=== PATIENT | female | born 1965 | race Caucasian/White ===

== ENCOUNTER 2016-04-29 16:20 | Emergency (ER) | payer OTHER ==
[~2016-04-29] VITALS: Ht 167.6 cm; Wt 77.6 kg
[2016-04-29 16:38] VITALS: BP 139/61
[2016-04-29] MEDS ORDERED: VITAMIN D50000 I3 PO (16:39)
[2016-04-29] MEDS ORDERED: LITHIUM CARBON300 MG PO (16:39)
[2016-04-29] MEDS ORDERED: ZEBETA10 MG PO (16:40)
[2016-04-29] MEDS ORDERED: ACETAMINOPHEN-H1 TA2 PO (16:40)
[2016-04-29] MEDS ORDERED: METHIMAZOLE10 MG PO (16:40)
[2016-04-29] MEDS ORDERED: BUTORPHANOL10 MG/M1 NAS (16:41)
[2016-04-29] MEDS ORDERED: Motrin,Rufen800 MG PO (18:06)
[2016-04-29] MEDS ORDERED: CYCLOBENZAPRINE10 MG PO (18:06)
== END 2016-04-29 18:25 | disposition home or self-care (01) ==
LOC: ED 16:20
DX: S80.11XA Contusion of right lower leg, initial encounter (principal); S30.0XXA Contusion of lower back and pelvis, initial encounter; S70.01XA Contusion of right hip, initial encounter; F17.200 Nicotine dependence, unspecified, uncomplicated; Z79.899 Other long term (current) drug therapy; W01.0XXA Fall on same level from slipping, tripping and stumbling without subsequent striking against object, initial encounter; Y93.9 Activity, unspecified; Y92.9 Unspecified place or not applicable; Y99.9 Unspecified external cause status

== ENCOUNTER 2016-08-21 16:53 | Emergency (ER) | payer OTHER ==
[~2016-08-21] VITALS: Ht 170.1 cm; Wt 74.4 kg
[~2016-08-21 16:53] MED LIST: ACETAMINOPHEN-H1 TA2 PO; BUTORPHANOL10 MG/M1 NAS; CYCLOBENZAPRINE10 MG PO; LITHIUM CARBON300 MG PO; METHIMAZOLE10 MG PO; Motrin,Rufen800 MG PO; VITAMIN D50000 I3 PO; ZEBETA10 MG PO
[2016-08-21 17:08] VITALS: BP 154/72
[2016-08-21] MEDS ORDERED: SEROQUEL100 MG PO (17:10)
[2016-08-21] MEDS ORDERED: ATIVAN2 M1 PO (17:10)
== END 2016-08-21 19:42 | disposition home or self-care (01) ==
LOC: ED 16:53
DX: R60.0 Localized edema (principal); F17.200 Nicotine dependence, unspecified, uncomplicated; Z79.899 Other long term (current) drug therapy

== ENCOUNTER 2016-10-15 10:33 | Inpatient (IN) | payer OTHER ==
[~2016-10-15] VITALS: Ht 170.2 cm; Wt 81.7 kg
--- NOTE | ~2016-10-15 | PR ---
[place], [place] PROGRESS NOTE NAME: JENNY QIUNN UNIT #: [id number] ROOM: 511 DOCTOR: MITCHELL HOLDEN MD BIRTHDATE: [birth year] DOS: 10/18/2016 REASON OF VISIT: CHF. HISTORY OF PRESENT ILLNESS: The patient is feeling better, less short of breath. Edema is much improved. Denies any chest pains, palpitations or orthopnea. She had a thoracentesis yesterday. No fever or chills, no cough. REVIEW OF SYSTEMS: Review of the 8 systems negative except as mentioned above. RHYTHM STRIPS: The patient was in sinus rhythm. PHYSICAL EXAMINATION: VITAL SIGNS: Initial vital signs reviewed. Blood pressure 110/70, pulse 70, respiratory rate 16. GENERAL: Alert, comfortable, in no acute distress. HEAD AND NECK: Pupils are round and equal. No jaundice. NECK: Supple, no distended neck veins, no carotid bruit. Thyroid not palpable. CHEST: Symmetrical, nontender. LUNGS: Few scattered rhonchi, diminished at bases. HEART: Regular rhythm, no S3. Grade 1/6 systolic murmur. ABDOMEN: Benign, nontender. Bowel sounds normal. The patient had a soft tissue swelling on the left side of the abdomen. EXTREMITIES: Showed 1+ bilateral pitting edema. Distal pulses palpable. SKIN: Warm and dry. No cyanosis, no clubbing. NEUROLOGIC: The patient is alert, oriented. No focal neurologic deficit. MEDICATIONS AND LABORATORY: Reviewed as available. IMPRESSION: 1. Congestive heart failure due to overload, diastolic heart failure, improving. 2. Thyrotoxicosis, currently heart rates better. 3. Pleural effusion, status post thoracocentesis. 4. Morbid obesity. RECOMMENDATIONS: 1. Change her Lasix to p.o. 2. Continue her current medications. 3. Rest of the management for thyrotoxicosis per PCP. [place], [place] PROGRESS NOTE NAME: JENNY QUINN UNIT #: [id number] ROOM: 511 DOCTOR: MITCHELL HOLDEN MD BIRTHDATE: [birth year] MITCHELL HOLDEN MD CM:BOBY [id number] MITCHELL HOLDEN MD 10/18/162150 interface
--- NOTE | ~2016-10-15 | PR ---
[place], [place] PROGRESS NOTE NAME: JENNY QUINN [facility] #: [id number] UNIT #: [id number] ROOM: 511 DOCTOR: MEHRAN SIERRA MD,MARY JO BIRTHDATE: [birth year] DOS: 10/17/2016 SUBJECTIVE: The patient has been noted without any new acute complaints at this time. Still noted symptoms of shortness of breath, which has not been resolving. She denies symptoms of chest pain or abdominal pain. The cough has been noted by patient with gradual reduction. OBJECTIVE: VITAL SIGNS: For the patient which has been recorded showed the temperature of the patient noted as normal. The respiratory rate of the patient recorded as 20. Heart rate of 93, blood pressure 127/73. HEENT: Exam showed no new change. NECK: Supple. CARDIOVASCULAR: S1, S2 audible. LUNGS: Noted absent breath sounds in the right lower lung. ABDOMEN: Soft, nontender, bowel sounds present. EXTREMITIES: Still shows mild edema. LABORATORY DATA: Ultrasound of both lower extremities does not show any acute deep venous thrombosis that was done this morning. CMP of the patient showed BUN 11, creatinine was normal. The CBC of this morning for the patient's hemoglobin of 9.0, hematocrit 28.7, platelet count was normal. The echocardiogram of the patient that was completed yesterday was reported by the radiologist, Dr. Tejeda as findings of hyperdynamic left ventricular function noted with ejection fraction of 70-75% with normal diastolic dysfunction. The CT scan of the chest of patient that was ordered yesterday was reviewed as well shows moderate to large left pleural fluid noted with area of atelectasis. Diffuse subcutaneous edema was described. IMPRESSION: 1. The patient who has been currently noted at this time with the congestive heart failure, hyperdynamic left ventricle ejection fraction with significant edema to the patient's part of the body including the right pleural fluid. 2. Rule out pneumonia for this patient as well. 3. Acute tracheobronchitis was noted as well with history of nicotine dependence. PLAN OF TREATMENT: Thoracentesis for the patient was planned to be done at the bedside with ultrasound assessment that showed large pleural fluid on the right side as well. The ultrasound of the chest was personally performed. Continue to diuretic therapy, continue antibiotic until the pneumonia is excluded, ____ most likely would be considered less likely current assessment. [place], [place] PROGRESS NOTE NAME: JENNY QUINN Demi UNIT #: [id number] ROOM: 511 DOCTOR: MEHRAN SIERRA MD,MARY JO BIRTHDATE: [birth year] MARY JO LAURENT MD CM:PNTRANS [id number] MARY JO SIERRA MD 10/18/16 0613 interface
--- NOTE | ~2016-10-15 | CON ---
[place], [place] REPORT OF CONSULTATION NAME: JENNY QUINN [facility] #: [id number] UNIT #: [id number] ROOM: 511 DOCTOR: DEVONTE CHO MD BIRTHDATE: [birth year] DOS: 10/15/2016 REASON FOR CONSULTATION: Dyspnea, pleural effusion, heart failure. HISTORY OF PRESENT ILLNESS: The patient is a 51-year-old woman who states that she was diagnosed as having Graves' disease about one year ago. She also carries diagnoses of hypertension, bipolar disorder and schizoaffective disorder. She was seen one time by an assembler truck trailer who treated her with methimazole. She stated that the medication made her ill and she never went back to see her again. She comes in now because of worsening dyspnea. She was seen by her PCP who noticed that she was becoming more and more dyspneic with increased orthopnea, lower extremity edema and abdominal edema. She also measured a 20-pound weight gain. The patient does occasionally have some chest discomfort. She does notice palpitations frequently. She denies lightheadedness or syncope, but has had significant ankle edema. PAST MEDICAL HISTORY: Includes: 1. Hypertension. 2. Bipolar disorder. 3. Graves' disease. The patient did receive methimazole, but stopped it because it made her sick. She has not had radioactive iodine or thyroidectomy surgery. 4. Migraine headaches. 5. Schizoaffective disorder. 6. History of back surgery, hysterectomy, neck surgery and oophorectomy. MEDICATIONS: On admission, butorphanol tartrate 10 mg 1 spray in the nostrils q. 8 hours as needed for migraine, bisoprolol 10 mg p.o. b.i.d., diltiazem 120 mg daily (patient states she is no longer taking this), vitamin D2 50,000 units weekly, acetaminophen with hydrocodone t.i.d. p.r.n. pain, lorazepam 2 mg t.i.d., omeprazole 20 mg daily and Seroquel 100 mg at bedtime. ALLERGIES: SHE LISTS ALLERGIES TO KETOROLAC, MOXIFLOXACIN, SULFAMETHOXAZOLE AND TRIMETHOPRIM. FAMILY HISTORY: The patient's father is alive and healthy. Her mother had a heart attack at age 45 and also has COPD. REVIEW OF SYSTEMS: The patient denies diplopia or loss of vision. She does have dry eyes. She denies fevers, chills or sweats. She has had over a 100-pound weight gain in the last year from her Graves' disease. She denies nausea or vomiting. She denies chills, but does have fevers and sweats. She denies focal weakness or stroke. She denies hemoptysis or hematemesis. She denies any blood in her stools or urine or any bleeding from any other site. She has noticed swelling in her abdomen and legs lately. She denies any skin rashes. She denies polydipsia or polyuria, but she has had heat intolerance. The remainder of the review of systems is negative except as noted above. [place], [place] REPORT OF CONSULTATION NAME: JENNY QUINN UNIT #: [id number] ROOM: [facility] DOCTOR: DEVONTE CHO MD BIRTHDATE: [birth year] SOCIAL HISTORY: The patient drinks alcohol rarely. She smokes about a half pack of cigarettes a day. PHYSICAL EXAMINATION: GENERAL: The patient is an overweight white female who is awake, alert and oriented. VITAL SIGNS: Pulse is 74 and regular, blood pressure is 142/56. She is afebrile. She weighs 87.1 kg and has a body mass index of 30.1. HEENT: Normocephalic, atraumatic. Extraocular muscles are intact. She does have marked proptosis. Pupils are equal, round and reactive to light. The sclerae are clear. Her oral mucosa is moist. Tongue is midline. NECK: Supple. She does have jugular distention with hepatojugular reflux. Carotids are full. Her thyroid is markedly swollen and tender to palpation. She does have a loud thyroid bruit bilaterally (thyroid hum). LUNGS: Respirations are unlabored. Her chest is clear with decreased breath sounds and dullness at the right base. HEART: Has a regular rhythm. She has a fourth heart sound, but no third heart sound. There is a grade 2/6 systolic ejection murmur along the left sternal border. No diastolic murmurs are present. The PMI is not displaced. There is no precordial heave, lift or thrill. ABDOMEN: Soft and normally active without masses, organomegaly or bruits. EXTREMITIES: Showed 2+ edema of the ankles bilaterally. Peripheral pulses are palpable in the ankles bilaterally. LABORATORY DATA: I reviewed her chest x-ray; it shows cardiomegaly with a large right pleural effusion. EKG shows sinus rhythm with borderline T-wave flattening. Hemoglobin is 10.4, hematocrit 33.0, there are 8500 white cells and 138,000 platelets present. INR is 1.2. Sodium is 141, potassium 4.0, chloride 106, CO2 of 26, BUN 9, creatinine 0.44. Troponin levels are normal. Cholesterol is 94 with triglycerides of 124, LDL of 53 and HDL of 16. TSH is immeasurably low at less than 0.005. Free T4 is markedly elevated at 4.61. IMPRESSIONS: 1. Congestive heart failure, most likely this is high output failure due to hyperthyroidism. 2. 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 3. Marked weight loss due to thyroid disease. 4. Probable significant malnutrition. PLAN: An echocardiogram has been obtained and we will review it when it is available. She is being diuresed with loop diuretics and we will increase that. We will follow her renal functions as we do it. I will be starting her on propranolol to help block the affect of thyroid on her heart. She almost certainly will require thyroid suppression therapy. She states that she does not tolerate methimazole, so she may require PTU followed by thyroidectomy or radioactive iodine management. We thank the hospitalist group for asking our advice regarding her care. [place], [place] REPORT OF CONSULTATION NAME: JENNY QUINN UNIT #: [id number] ROOM: 511 DOCTOR: DEVONTE CHO MD BIRTHDATE: [birth year] DEVONTE CHO MD CM:CONSTR:REPORT OF CONSULTATION 190 10/16/16 0033 interface
--- NOTE | ~2016-10-15 | CON ---
[place], [place] REPORT OF CONSULTATION NAME: JENNY QUINN [facility] #: [id number] UNIT #: [id number] ROOM: 511 DOCTOR: MARY JO POWELL MD BIRTHDATE: [birth year] DOS: 10/16/2016 PULMONARY CONSULTATION CONSULTATION REQUESTED BY: Hospitalist services. REASON FOR CONSULTATION: Assessment of possibility of acute pneumonia and pleural effusion. HISTORY OF PRESENT ILLNESS: This is a 51-year-old white female who has been admitted to the hospital under the hospitalist services on 10/15/2016. The patient has been admitted from the office of primary care physician. The patient was noted with progressive edema, which has been occurring on the upper and lower extremities with increased orthopnea and symptoms of shortness of breath. The patient stated that she has developed symptoms of acute cold symptoms about 3 weeks. The symptoms were associated with shortness of breath with cough and chest congestion. After that, she started noticing increased weight gain and edema of the upper and lower extremities and shortness of breath was worsened. The cough has been noted mild without any sputum expectoration. Denies symptoms of chest pain. Denies symptoms of rather wheezing. The chest pain was described midsternal area, mild to moderate, radiation to the left arm. She also reported symptoms of orthopnea. REVIEW OF SYSTEMS: CONSTITUTIONAL: Fatigue and tiredness described without any fever or chills. EYES: Denies any burning, redness, or tenderness. EARS, NOSE, THROAT: No sore throat, hoarseness, otalgia, postnasal drainage or epistaxis. CARDIOVASCULAR: Progressive edema of the upper and the lower extremities noted on admission. There were no symptoms of palpitations. Possibility of recurrent angina pain was noted as described in the history. GASTROINTESTINAL: Denies dysphagia, nausea, vomiting, diarrhea, abdominal pain, hematemesis, melena, or hematochezia. SKIN: Denies lesions or rashes. CENTRAL NERVOUS SYSTEM: Denies dizziness, headache, diplopia or syncopal episodes. Remaining systems were reviewed with the patient and they were noted all negative. PAST MEDICAL HISTORY: 1. Chronic degenerative arthritis of the lower spine. 2. Graves disease. 3. Essential hypertension. 4. Migraine headache. 5. Schizoaffective disorder. 6. Bipolar disorder. PAST SURGICAL HISTORY: 1. Lumbar laminectomy. [place], [place] REPORT OF CONSULTATION [facility] [id number] UNIT #: [id number] ROOM: 511 DOCTOR: MEHRAN SIERRA MD,MARY JO BIRTHDATE: [birth year] 2. Complete hysterectomy. 3. Cervical fusion and laminectomy. SOCIAL HISTORY: The patient stated she is , has 4 children. Smoking was known since teenager as 15 years old, half a pack of cigarettes per day. Denies any illicit drug use or any alcohol dependence. FAMILY HISTORY: Father living and healthy. Mother at the age of 45 to complications of COPD and myocardial infarction. HOME MEDICATIONS: Listed on admission as use of ____, Cardizem-CD, vitamin D, Vicodin, Ativan, Seroquel, omeprazole, and butorphanol. DRUG ALLERGIES: 1. TORADOL. 2. AVELOX. 3. BACTRIM. PHYSICAL EXAMINATION: GENERAL: This is a 51-year-old white female, currently comfortably sitting on the bed. VITAL SIGNS: Height was noted 5 feet 7 inches, weight of 192 pounds, BMI 30. The vital signs shows a normal temperature, respiratory rate 16-20, heart rate 74-84, blood pressure 136/51-114/52. The pulse oxygen saturation 96% on 2 liters nasal cannula. HEENT: Examination shows head was atraumatic. Eyes nonicterus. NECK: Supple. CARDIOVASCULAR: S1, S2 audible. LUNGS: Crackles and decreased breath sounds in the lower portion of the lungs bilaterally. There was no wheezing heard. ABDOMEN: Soft, nontender. EXTREMITIES: Shows mild edema at the present time. CENTRAL NERVOUS SYSTEM: Cranial nerves 2-12 intact. No focal deficit. MUSCULOSKELETAL: Does not show any acute deformities. SKIN: Showed no lesions or rashes. LABORATORY DATA: Chest x-ray of the patient that was done on 10/15/2016 was noted with small possible moderate sized pleural fluid on the right side, small pleural fluid also noted on the left side with finding of possible congestive heart failure. The CBC of patient on 10/15/2016 shows WBC count 8.5, hemoglobin 10.4, hematocrit 33.0, platelet count 138,000. CK-MB and troponin were noted as normal. PT and PTT were noted as normal PT and PTT. CK-MB and troponin two additional sets this morning were normal. CMP of the patient of 10/15/2016 shows BUN of 9, creatinine was normal. Remaining electrolytes were normal. LFTs of the patient shows bilirubin 1.8, mildly elevated; albumin decreased at 2.9; alkaline phosphatase noted 302; and proBNP of 4839. BMP this morning still noted as normal. IMPRESSION: 1. The patient has been admitted to the hospital, started with symptoms of [place], [place] REPORT OF CONSULTATION NAME: JENNY QUINN UNIT #: [id number] ROOM: 511 DOCTOR: MEHRAN SIERRA MD,MARY JO BIRTHDATE: [birth year] acute chest congestion and cough and cold-like symptoms, later noted progressive symptoms of generalized edema with increasing shortness of breath. The differential diagnosis with the current abnormality would be considered as findings of congestive heart failure with this patient and assessment possibility of pneumonia with pleural fluid related to that remains in consideration. 2. History of chronic nicotine abuse as well. There were no signs of acute exacerbation of chronic obstructive pulmonary disease or bronchial asthma. PLAN OF MANAGEMENT: Obtain a CT scan of the chest at the present time for further assessment ____ of the current problem and the lung problem. Based on this, plan will be either thoracentesis or chest tube insertion as necessary for the assessment and management of current pleural fluid. The CT scan of the chest will be done with IV contrast. Cardiology assessment was also noted in progress. The patient's echocardiogram has been completed pending results. Supportive plan and management and other care. Usual therapies. Thanks for allowing me to participate in the care of this patient. MARY JO LAURENT MD CM:CONSTR:REPORT OF CONSULTATION 1125 10/16/16 1226 interface
--- NOTE | ~2016-10-15 | PR ---
[place], [place] PROGRESS NOTE NAME: JENNY QUINN UNIT #: [id number] ROOM: 511 DOCTOR: MARY JO POWELL MD BIRTHDATE: [birth year] DOS: 10/19/2016 PULMONARY PROGRESS NOTE SUBJECTIVE: She was still noted with edema of the skin. Shortness of breath seemed to be decreased. The patient has been noted mild cough and wheezing at times. Denies any chest pain. OBJECTIVE: VITAL SIGNS: Showed normal temperature, respirations 18, heart rate 67, blood pressure 105/62. Pulse oxygen saturation of the patient noted on room air 93% saturation. HEENT: Examination shows no acute change. NECK: Supple. CARDIOVASCULAR: S1, S2 audible. LUNGS: Noted without any wheeze or crackles at the present time. The breaths are noted mildly decreased in the right lower lung. ABDOMEN: Soft, nontender. LABORATORY DATA: The cytology of the pleural fluid was pending. The cultures of the pleural fluid from the shows no bacterial growth. CBC of the patient of 10/19/2016 shows hemoglobin 9.5, hematocrit 30.1, WBC count normal, platelet count decreased at 112,000. CMP of the patient, BUN 14, creatinine 0.34. IMPRESSION: 1. The patient with anasarca, the patient with congestive heart failure and/or cirrhosis of the liver would be considered causing ascites with pleural fluid. 2. The patient with history of nicotine abuse and chronic obstructive pulmonary disease and bronchitis. 3. Acute pneumonia. The patient has been excluded for this at this time. PLAN OF TREATMENT: Diuretic therapy to be continued. Continue bronchodilators with oxygen supplementation. Abstinence from tobacco use was encouraged. Supportive therapy, plan of management and other treatments. [place], [place] PROGRESS NOTE NAME: JENNY QUINN UNIT #: [id number] ROOM: 511 DOCTOR: MARY JO POWELL MD BIRTHDATE: [birth year] MARY JO LAURENT MD CM:PNTRANS [id number] MARY JO SIERRA MD 10/19/16 1221 interface
--- NOTE | ~2016-10-15 | PR ---
[place], [place] PROGRESS NOTE NAME: JENNY QUINN UNIT #: [id number] ROOM: 511 DOCTOR: DEVONTE CHO MD BIRTHDATE: [birth year] DOS: 10/16/2016 SUBJECTIVE: The patient was seen at her bedside today, 10/16/2016 for followup of heart failure, which I believe is due to thyrotoxicosis with high output failure. The patient tells me she is feeling better today. She has diuresed considerably but I and O are not accurate. 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 PHYSICAL EXAMINATION: VITAL SIGNS: Today, her pulse is 90 and regular, blood pressure is 118/57. She is afebrile. NECK: Supple. She has no jugular distention. She does have hepatojugular reflux. Carotids are full. LUNGS: Respirations are unlabored. Her chest is clear to auscultation and percussion. She has no presacral edema. Examination of the neck does show thyromegaly with a load thyroid hum, especially over the left thyroid lobe. HEART: Has a regular rhythm with a fourth heart sound. There is no third heart sound. She has a grade 2/6 systolic ejection murmur along the left sternal border, but no diastolic murmurs. She does have a pericardial "scratch." There is no precordial heave, lift or thrill. EXTREMITIES: Show 1+ edema of the ankles bilaterally. Peripheral pulses are palpable in the ankles bilaterally. I did review her preliminary echo images. She does have normal left ventricular size with hyperdynamic systolic function. Diastole appears to be normal. No significant valve abnormality was present. IMPRESSION: 1. Congestive heart failure, most likely due to hyperthyroidism, thyrotoxicosis, and high output failure. 2. Marked weight loss due to thyroid disease. 3. Probable significant malnutrition. PLAN: We will continue to increase her propranolol. She tells me that she is to be placed on propylthiouracil. We will continue to follow her signs of failure and manage her appropriately with her other physicians. We thank the hospitalist group for asking our advice regarding her care. [place], [place] PROGRESS NOTE NAME: JENNY QUINN UNIT #: [id number] ROOM: 511 DOCTOR: DEVONTE CHO MD BIRTHDATE: [birth year] DEVONTE CHO MD CM:PNTRANS [id number] DEVONTE CHO MD 10/17/16 0151 interface
--- NOTE | ~2016-10-15 | PR ---
[place], [place] PROGRESS NOTE NAME: JENNY QUINN [facility] #: [id number] UNIT #: [id number] ROOM: 511 DOCTOR: MEHRAN SIERRA MD,MARY JO BIRTHDATE: [birth year] DOS: 10/18/2016 PULMONARY PROGRESS NOTE SUBJECTIVE: She has a thoracentesis done just with about 1000 mL of pleural fluid removed from the right pleural space. The patient has not been noticed symptoms of chest pain. Denies any abdominal pain. OBJECTIVE: VITAL SIGNS: For the patient, which has been recorded, temperature of the patient noted as normal. The respiratory rate of the patient was recorded as 20, heart rate 83, blood pressure 140/82. The pulse oxygen saturation noted on room air was 91% saturation. HEENT: Examination shows no new change. NECK: Supple. CARDIOVASCULAR: S1, S2 is audible. LUNGS: Noted with improvement in air entry of the lungs. In the right side, however, the breath sounds still noted in the right lung base. There were no crackles. There was no wheezing. ABDOMEN: Soft, nontender. LABORATORY DATA: CBC of 10/18/2016: Hemoglobin 9.8, hematocrit 31.2, WBC count normal, platelet count 112,000. CMP: BUN 12, creatinine was normal, glucose 103. Albumin 2.8, bilirubin 1.8. Alkaline phosphatase 225, mildly elevated. Pleural fluid analysis of chest today was noted as total of 77. WBC with various differential. Glucose 134, protein of 2.5, LDH 74, cholesterol less than 50. Albumin 1.4. The chest x-ray post-thoracentesis. Radiologist's report was noted with scant pleural fluids in the right lower lobe with remaining area of atelectasis. However, significant improvement in the aeration of the right lung was noted. CT scan of the abdomen and pelvis was noted with evidence of moderate size ascites in the abdomen as well. IMPRESSION: 1. The patient who has been noted with anasarca picture. The patient with right pleural fluid as well as ascitic fluid. The patient has possibility of congestive heart failure with possibility of liver disease. The patient will be considered. The pleural fluid was noted transudative in nature. There were no signs of acute pneumonia at this time. Clinically, pneumonia should be excluded. 2. History of nicotine abuse as well. PLAN OF TREATMENT: Discontinue antibiotic. The patient's lack of evidence for the patient's acute pneumonia. Treat the patient with the diuretic, the patient has Lasix. Possibility of cirrhosis of the liver could be considered because of the thrombocytopenia as well as hypoalbuminemia. Other supportive plan of management and care. [place], [place] PROGRESS NOTE NAME: JENNY QUINN Demi UNIT #: [id number] ROOM: 511 DOCTOR: MARY JO POWELL MD BIRTHDATE: [birth year] MARY JO LAURENT MD CM:PNOSWALDO [id number] MARY JO SIERRA MD 10/19/16 0116 interface
--- NOTE | ~2016-10-15 | PROC NOTE ---
[place], [place] PROCEDURE NOTE [id number] UNIT #: [id number] ROOM: 511 DOCTOR: MEHRAN SIERRA MD,MARY JO BIRTHDATE: [birth year] DOS: 10/17/2016 PROCEDURE: Right-sided thoracentesis. PREOPERATIVE DIAGNOSIS: Large right pleural fluid. POSTOPERATIVE DIAGNOSES: Removal of approximately 1000-plus mL of pleural fluid from the right pleural space without any difficulty or complications. PROCEDURE DESCRIPTION: Informed consent obtained for the patient. The patient was placed in sitting position. Ultrasound of the chest was personally performed. The pocket of fluid was isolated in the posterior lower chest wall. Skin was cleaned, after that chlorhexidine solution. 1% lidocaine administered on the skin and intercostal space. During administration of local anesthetic, small amount of fluid was aspirated. After that, a small incision given in the skin. [place] thoracentesis catheter introduced through the incision into the right pleural space without difficulty. A total of approximately 1050 mL of pleural fluid was removed from the right pleural space without difficulty. The procedure in general was well tolerated by the patient without any difficulty. Chest x-ray done. Post-procedure radiology's report pending. There was no pneumothorax with significant reduction and improvement in the aeration of the lung noted in the right side. Based on the current assessment, no changes in the treatment of the patient will be necessary. Pleural fluid has been sent for all the testing including for cytology. MARY JO LAURENT MD CM:PROCNOTE:PROCEDURE NOTE [id number] MARY JO SIERRA MD
[~2016-10-15 10:33] MED LIST changes: +ATIVAN2 M1 PO; +SEROQUEL100 MG PO
[2016-10-15 11:00] VITALS: BP 144/62
[2016-10-15 11:32] LABS: BASO % 0.4 % (0.0-1.0); EOS # 0.1 10*3/uL (0.0-0.4); EOS % 1.2 % (1.0-4.0); HEMOGLOBIN 10.4 g/dl (12.0-16.0); LYMPH # 2.4 10*3/uL (1.3-4.4); LYMPH % 28.5 % (27.0-41.0); MEAN CELL VOLUME 90.2 fl (81.0-99.0); MEAN CORPUSCULAR HGB 28.4 pg (27.0-31.0); MEAN CORPUSCULAR HGB CONC 31.5 g/dl (33.0-37.0); MEAN PLATELET VOLUME 10.6 fl (9.6-12.3); MONO # 0.8 10*3/uL (0.1-1.0); MONO % 8.8 % (3.0-9.0); NEUT # 5.2 10*3/uL (2.3-7.9); NEUT % 60.9 % (47.0-73.0); PLATELET COUNT AUTOMATED 138 10*3/uL (130-400); RED BLOOD COUNT 3.66 10*6/uL (4.10-5.10); RED CELL DISTRI WIDTH 17.6 % (0-14.5); WHITE BLOOD COUNT 8.5 10*3/uL (4.8-10.8)
[2016-10-15] MEDS ORDERED: CARDIZEM CD120 M2 PO (11:55)
[2016-10-15] MEDS ORDERED: PRILOSEC20 M1 PO (11:55)
[2016-10-15 11:56] LABS: ALBUMIN 2.9 gm/dl (3.1-4.5); ALKALINE PHOSPHATASE 302 U/L (45-117); BILIRUBIN, TOTAL 1.8 mg/dl (0.2-1.0); BUN 9 mg/dl (7-24); CARBON DIOXIDE 26 mmol/L (21-32); CHLORIDE 106 mmol/L (98-107); CHOLESTEROL 94 mg/dL (<200); CKMB 0.6 ng/ml (0.5-3.6); EST GLOM FILT AFRICAN AMERICAN > 60 ml/min; GLUCOSE 114 mg/dL (65-99); MAGNESIUM 1.7 mg/dL (1.5-2.1); PHOSPHOROUS 3.5 mg/dL (2.5-4.9); SGOT/AST 31 IU/L (3-35); SGPT/ALT 18 U/L (12-78); SODIUM 141 mmol/L (136-145); TOTAL PROTEIN 6.4 gm/dL (6.4-8.2); TRIGLYCERIDES 124 mg/dl (<150); TROPONIN I 0.017 ng/ml (<0.045); VLDL CHOLESTEROL 25 mg/dL (6-40)
[2016-10-15 12:00] VITALS: BP 136/51
[2016-10-15 12:02] LABS: FREE T4 4.61 ng/dl (0.76-1.46); HDL CHOLESTEROL 16 mg/dl (40-60); LDL CHOLESTEROL 53 mg/dL (9-159)
[2016-10-15 12:25] LABS: THYROID STIM HORMONE (HS) < 0.005 uIU/ml (0.358-4.75)
[2016-10-15 12:49] LABS: INTERNATIONAL NORM RATIO 1.2 (2.0-3.5); PROTHROMBIN TIME 12.8 SECONDS (9.0-12.4)
[2016-10-15 14:33] LABS: CKMB 0.8 ng/ml (0.5-3.6)
[2016-10-15 16:00] VITALS: BP 142/56
[2016-10-15 17:28] LABS: CKMB 0.8 ng/ml (0.5-3.6)
[2016-10-15 20:00] VITALS: BP 109/57
[2016-10-16] VITALS: BP 102/62
[2016-10-16 07:30] LABS: BUN 8 mg/dl (7-24); CARBON DIOXIDE 29 mmol/L (21-32); CHLORIDE 106 mmol/L (98-107); EST GLOM FILT AFRICAN AMERICAN > 60 ml/min; GLUCOSE 90 mg/dL (65-99); POTASSIUM 3.7 mmol/L (3.5-5.1); SODIUM 145 mmol/L (136-145)
[2016-10-16 08:00] VITALS: BP 114/52
[2016-10-16 12:00] VITALS: BP 118/57
[2016-10-16 16:00] VITALS: BP 122/56
[2016-10-16 20:00] VITALS: BP 122/63
[2016-10-17] VITALS: BP 113/58
[2016-10-17 06:21] LABS: BASO % 0.4 % (0.0-1.0); EOS # 0.2 10*3/uL (0.0-0.4); EOS % 3.2 % (1.0-4.0); HEMATOCRIT 28.7 % (37.0-47.0); LYMPH # 2.2 10*3/uL (1.3-4.4); LYMPH % 40.3 % (27.0-41.0); MEAN CELL VOLUME 89.4 fl (81.0-99.0); MEAN CORPUSCULAR HGB CONC 31.4 g/dl (33.0-37.0); MEAN PLATELET VOLUME 11.5 fl (9.6-12.3); MONO # 0.6 10*3/uL (0.1-1.0); MONO % 10.9 % (3.0-9.0); NEUT # 2.4 10*3/uL (2.3-7.9); PLATELET COUNT AUTOMATED 112 10*3/uL (130-400); RED BLOOD COUNT 3.21 10*6/uL (4.10-5.10); RED CELL DISTRI WIDTH 17.2 % (0-14.5); WHITE BLOOD COUNT 5.4 10*3/uL (4.8-10.8)
[2016-10-17 06:56] LABS: ALBUMIN 2.6 gm/dl (3.1-4.5); BILIRUBIN, TOTAL 1.9 mg/dl (0.2-1.0); BUN 11 mg/dl (7-24); CARBON DIOXIDE 30 mmol/L (21-32); CHLORIDE 104 mmol/L (98-107); EST GLOM FILT AFRICAN AMERICAN > 60 ml/min; GLUCOSE 91 mg/dL (65-99); MAGNESIUM 1.6 mg/dL (1.5-2.1); POTASSIUM 3.5 mmol/L (3.5-5.1); SGOT/AST 30 IU/L (3-35); SGPT/ALT 17 U/L (12-78); SODIUM 143 mmol/L (136-145)
[2016-10-17 07:06] LABS: ALKALINE PHOSPHATASE 227 U/L (45-117); FREE T4 3.38 ng/dl (0.76-1.46); TOTAL PROTEIN 5.8 gm/dL (6.4-8.2)
[2016-10-17 07:07] LABS: THYROID STIM HORMONE (HS) < 0.005 uIU/ml (0.358-4.75)
[2016-10-17 08:00] VITALS: BP 110/50; BP 112/54
[2016-10-17 12:00] VITALS: BP 127/73
[2016-10-17 13:47] LABS: BODY FLUID RBC 1000 /uL; BODY FLUID WBC 77 /uL
[2016-10-17 13:52] LABS: BODY FLUID TYPE PLEURAL
[2016-10-17 13:54] LABS: BODY FLUID ALBUMIN 1.4 g/dL; BODY FLUID AMYLASE 18 U/L; BODY FLUID CHOLESTEROL < 50 mg/dl; BODY FLUID GLUCOSE 134 mg/dl; BODY FLUID LDH 74 IU/L; BODY FLUID PROTEIN 2.5 g/dl; BODY FLUID TRIGLYCERIDE 37 mg/dl
[2016-10-17 14:16] LABS: BF LYMPHOCYTES 62 %; BF MESOTHELIALS 5 %; BF MONOCYTES 26 %; BF NEUTROPHILS 6 %
[2016-10-17 16:00] VITALS: BP 130/71
[2016-10-17 20:00] VITALS: BP 137/58
[2016-10-18] VITALS: BP 134/77
[2016-10-18 06:55] LABS: BASO % 0.4 % (0.0-1.0); EOS # 0.1 10*3/uL (0.0-0.4); EOS % 2.3 % (1.0-4.0); HEMATOCRIT 31.2 % (37.0-47.0); HEMOGLOBIN 9.8 g/dl (12.0-16.0); LYMPH # 2.5 10*3/uL (1.3-4.4); LYMPH % 46.5 % (27.0-41.0); MEAN CELL VOLUME 90.4 fl (81.0-99.0); MEAN CORPUSCULAR HGB 28.4 pg (27.0-31.0); MEAN CORPUSCULAR HGB CONC 31.4 g/dl (33.0-37.0); MEAN PLATELET VOLUME 11.5 fl (9.6-12.3); MONO # 0.6 10*3/uL (0.1-1.0); MONO % 10.6 % (3.0-9.0); NEUT # 2.1 10*3/uL (2.3-7.9); PLATELET COUNT AUTOMATED 112 10*3/uL (130-400); RED BLOOD COUNT 3.45 10*6/uL (4.10-5.10); RED CELL DISTRI WIDTH 17.4 % (0-14.5); WHITE BLOOD COUNT 5.3 10*3/uL (4.8-10.8)
[2016-10-18 07:33] LABS: ALBUMIN 2.8 gm/dl (3.1-4.5); ALKALINE PHOSPHATASE 225 U/L (45-117); BILIRUBIN, TOTAL 1.8 mg/dl (0.2-1.0); BUN 12 mg/dl (7-24); CARBON DIOXIDE 32 mmol/L (21-32); CHLORIDE 102 mmol/L (98-107); EST GLOM FILT AFRICAN AMERICAN > 60 ml/min; GLUCOSE 103 mg/dL (65-99); MAGNESIUM 1.7 mg/dL (1.5-2.1); POTASSIUM 3.7 mmol/L (3.5-5.1); SGOT/AST 31 IU/L (3-35); SGPT/ALT 18 U/L (12-78); SODIUM 144 mmol/L (136-145); TOTAL PROTEIN 6.1 gm/dL (6.4-8.2)
[2016-10-18 08:00] VITALS: BP 104/82
[2016-10-18 12:00] VITALS: BP 116/50
[2016-10-18 16:00] VITALS: BP 105/58
[2016-10-18 20:00] VITALS: BP 112/63
[2016-10-19] VITALS: BP 109/55
[2016-10-19 06:27] LABS: BASO % 0.4 % (0.0-1.0); EOS # 0.1 10*3/uL (0.0-0.4); EOS % 2.5 % (1.0-4.0); HEMATOCRIT 30.1 % (37.0-47.0); HEMOGLOBIN 9.5 g/dl (12.0-16.0); LYMPH # 2.3 10*3/uL (1.3-4.4); LYMPH % 43.9 % (27.0-41.0); MEAN CELL VOLUME 89.3 fl (81.0-99.0); MEAN CORPUSCULAR HGB 28.2 pg (27.0-31.0); MEAN CORPUSCULAR HGB CONC 31.6 g/dl (33.0-37.0); MEAN PLATELET VOLUME 11.1 fl (9.6-12.3); MONO # 0.6 10*3/uL (0.1-1.0); MONO % 11.9 % (3.0-9.0); NEUT # 2.2 10*3/uL (2.3-7.9); NEUT % 41.1 % (47.0-73.0); PLATELET COUNT AUTOMATED 112 10*3/uL (130-400); RED BLOOD COUNT 3.37 10*6/uL (4.10-5.10); RED CELL DISTRI WIDTH 17.2 % (0-14.5); WHITE BLOOD COUNT 5.2 10*3/uL (4.8-10.8)
[2016-10-19 06:54] LABS: BUN 14 mg/dl (7-24); CARBON DIOXIDE 30 mmol/L (21-32); CHLORIDE 101 mmol/L (98-107); EST GLOM FILT AFRICAN AMERICAN > 60 ml/min; GLUCOSE 104 mg/dL (65-99); MAGNESIUM 1.7 mg/dL (1.5-2.1); POTASSIUM 4.3 mmol/L (3.5-5.1); SODIUM 139 mmol/L (136-145)
[2016-10-19 08:00] VITALS: BP 105/62
[2016-10-19 12:00] VITALS: BP 126/56
[2016-10-19 16:27] VITALS: BP 107/57
[2016-10-19 20:00] VITALS: BP 114/53
[2016-10-20] VITALS: BP 124/59
[2016-10-20 06:29] LABS: BASO % 0.5 % (0.0-1.0); EOS # 0.1 10*3/uL (0.0-0.4); EOS % 2.3 % (1.0-4.0); HEMATOCRIT 31.5 % (37.0-47.0); HEMOGLOBIN 9.7 g/dl (12.0-16.0); LYMPH # 2.5 10*3/uL (1.3-4.4); LYMPH % 40.4 % (27.0-41.0); MEAN CELL VOLUME 91.3 fl (81.0-99.0); MEAN CORPUSCULAR HGB 28.1 pg (27.0-31.0); MEAN CORPUSCULAR HGB CONC 30.8 g/dl (33.0-37.0); MEAN PLATELET VOLUME 11.3 fl (9.6-12.3); MONO # 0.6 10*3/uL (0.1-1.0); MONO % 9.6 % (3.0-9.0); NEUT # 2.9 10*3/uL (2.3-7.9); PLATELET COUNT AUTOMATED 114 10*3/uL (130-400); RED BLOOD COUNT 3.45 10*6/uL (4.10-5.10); RED CELL DISTRI WIDTH 17.2 % (0-14.5); WHITE BLOOD COUNT 6.1 10*3/uL (4.8-10.8)
[2016-10-20 07:29] LABS: CHLORIDE 100 mmol/L (98-107); POTASSIUM 4.2 mmol/L (3.5-5.1); SODIUM 139 mmol/L (136-145)
[2016-10-20 07:46] LABS: BUN 15 mg/dl (7-24); CARBON DIOXIDE 29 mmol/L (21-32); EST GLOM FILT AFRICAN AMERICAN > 60 ml/min; FREE T4 1.42 ng/dl (0.76-1.46); GLUCOSE 94 mg/dL (65-99); MAGNESIUM 1.7 mg/dL (1.5-2.1)
[2016-10-20 08:30] VITALS: BP 102/62
[2016-10-20 12:00] VITALS: BP 118/64
[2016-10-20 16:00] VITALS: BP 126/84
[2016-10-20 20:00] VITALS: BP 128/68
[2016-10-21] VITALS: BP 106/49
[2016-10-21 06:28] LABS: BASO % 0.5 % (0.0-1.0); EOS # 0.1 10*3/uL (0.0-0.4); EOS % 2.2 % (1.0-4.0); HEMATOCRIT 29.1 % (37.0-47.0); HEMOGLOBIN 9.2 g/dl (12.0-16.0); LYMPH % 36.8 % (27.0-41.0); MEAN CELL VOLUME 89.8 fl (81.0-99.0); MEAN CORPUSCULAR HGB 28.4 pg (27.0-31.0); MEAN CORPUSCULAR HGB CONC 31.6 g/dl (33.0-37.0); MONO # 0.5 10*3/uL (0.1-1.0); MONO % 9.6 % (3.0-9.0); NEUT # 2.8 10*3/uL (2.3-7.9); NEUT % 50.7 % (47.0-73.0); PLATELET COUNT AUTOMATED 110 10*3/uL (130-400); RED BLOOD COUNT 3.24 10*6/uL (4.10-5.10); RED CELL DISTRI WIDTH 16.8 % (0-14.5); WHITE BLOOD COUNT 5.5 10*3/uL (4.8-10.8)
[2016-10-21 07:03] LABS: EST GLOM FILT AFRICAN AMERICAN > 60 ml/min
[2016-10-21 08:00] VITALS: BP 112/55
[2016-10-21 12:00] VITALS: BP 105/86
[2016-10-21 16:00] VITALS: BP 114/65
[2016-10-21 20:00] VITALS: BP 124/63
[2016-10-22] VITALS: BP 111/59
[2016-10-22 06:36] LABS: BASO % 0.4 % (0.0-1.0); EOS # 0.1 10*3/uL (0.0-0.4); EOS % 2.5 % (1.0-4.0); HEMATOCRIT 27.7 % (37.0-47.0); HEMOGLOBIN 8.9 g/dl (12.0-16.0); LYMPH # 1.8 10*3/uL (1.3-4.4); LYMPH % 33.1 % (27.0-41.0); MEAN CELL VOLUME 89.6 fl (81.0-99.0); MEAN CORPUSCULAR HGB 28.8 pg (27.0-31.0); MEAN CORPUSCULAR HGB CONC 32.1 g/dl (33.0-37.0); MEAN PLATELET VOLUME 10.2 fl (9.6-12.3); MONO # 0.6 10*3/uL (0.1-1.0); MONO % 10.3 % (3.0-9.0); NEUT % 53.5 % (47.0-73.0); PLATELET COUNT AUTOMATED 102 10*3/uL (130-400); RED BLOOD COUNT 3.09 10*6/uL (4.10-5.10); RED CELL DISTRI WIDTH 17.2 % (0-14.5); WHITE BLOOD COUNT 5.6 10*3/uL (4.8-10.8)
[2016-10-22 06:58] LABS: BUN 16 mg/dl (7-24); CARBON DIOXIDE 33 mmol/L (21-32); CHLORIDE 99 mmol/L (98-107); EST GLOM FILT AFRICAN AMERICAN > 60 ml/min; GLUCOSE 140 mg/dL (65-99); POTASSIUM 4.4 mmol/L (3.5-5.1); SODIUM 139 mmol/L (136-145)
[2016-10-22 08:00] VITALS: BP 115/75
[2016-10-22] MEDS ORDERED: METHIMAZOLE10 MG PO (09:49)
[2016-10-22] MEDS ORDERED: PROPRANOLOL HCL20 M1 PO (09:49)
[2016-10-22] MEDS ORDERED: BUMETANIDE1 MG PO (09:50)
[2016-10-22 12:00] VITALS: BP 113/55
[2016-10-22 16:00] VITALS: BP 114/58
[2016-10-22 20:00] VITALS: BP 107/50
[2016-10-23] VITALS: BP 116/58
[2016-10-23 06:21] LABS: BASO % 0.4 % (0.0-1.0); EOS # 0.1 10*3/uL (0.0-0.4); EOS % 2.4 % (1.0-4.0); HEMATOCRIT 26.6 % (37.0-47.0); HEMOGLOBIN 8.4 g/dl (12.0-16.0); LYMPH # 1.9 10*3/uL (1.3-4.4); LYMPH % 38.7 % (27.0-41.0); MEAN CELL VOLUME 90.5 fl (81.0-99.0); MEAN CORPUSCULAR HGB 28.6 pg (27.0-31.0); MEAN CORPUSCULAR HGB CONC 31.6 g/dl (33.0-37.0); MEAN PLATELET VOLUME 11.5 fl (9.6-12.3); MONO # 0.5 10*3/uL (0.1-1.0); MONO % 10.5 % (3.0-9.0); NEUT # 2.4 10*3/uL (2.3-7.9); NEUT % 47.8 % (47.0-73.0); PLATELET COUNT AUTOMATED 112 10*3/uL (130-400); RED BLOOD COUNT 2.94 10*6/uL (4.10-5.10); RED CELL DISTRI WIDTH 17.1 % (0-14.5)
[2016-10-23 08:00] VITALS: BP 106/57
[2016-10-23] MEDS ORDERED: BUMETANIDE1 MG PO (11:02)
[2016-10-23 12:00] VITALS: BP 127/63
== END 2016-10-23 15:36 | disposition home or self-care (01) | DRG 291 ==
LOC: 5E 10:33
PROVIDERS: Emergency Medicine; Hospitalist; Internal Medicine; Internal Medicine Cardiovascular Disease; Internal Medicine Critical Care Medicine; Student in an Organized Health Care Education/Training Program
PROC: 0W993ZX Drainage of Right Pleural Cavity, Percutaneous Approach, Diagnostic (ICD-10-PCS; principal; 2016-10-17)
DX: I11.0 Hypertensive heart disease with heart failure (principal); J96.01 Acute respiratory failure with hypoxia; J18.9 Pneumonia, unspecified organism; E44.0 Moderate protein-calorie malnutrition; J90 Pleural effusion, not elsewhere classified; I42.9 Cardiomyopathy, unspecified; J44.0 Chronic obstructive pulmonary disease with (acute) lower respiratory infection; E05.00 Thyrotoxicosis with diffuse goiter without thyrotoxic crisis or storm; I50.33 Acute on chronic diastolic (congestive) heart failure; D64.9 Anemia, unspecified; F31.9 Bipolar disorder, unspecified; F25.9 Schizoaffective disorder, unspecified; F17.210 Nicotine dependence, cigarettes, uncomplicated; E66.01 Morbid (severe) obesity due to excess calories; J20.9 Acute bronchitis, unspecified; Z90.710 Acquired absence of both cervix and uterus; Z90.721 Acquired absence of ovaries, unilateral; Z82.49 Family history of ischemic heart disease and other diseases of the circulatory system; Z82.5 Family history of asthma and other chronic lower respiratory diseases; Z79.1 Long term (current) use of non-steroidal anti-inflammatories (NSAID); Z79.899 Other long term (current) drug therapy; Z71.6 Tobacco abuse counseling; Z88.2 Allergy status to sulfonamides; Z88.1 Allergy status to other antibiotic agents; Z88.8 Allergy status to other drugs, medicaments and biological substances; Z68.30 Body mass index [BMI] 30.0-30.9, adult; M46.90 Unspecified inflammatory spondylopathy, site unspecified

== ENCOUNTER → 2016-11-11 | Outpatient (CLI) | payer OTHER ==
[~2016-11-11] MED LIST changes: +BUMETANIDE1 MG PO; +CARDIZEM CD120 M2 PO; +PRILOSEC20 M1 PO; +PROPRANOLOL HCL20 M1 PO
== END | disposition home or self-care (01) ==
LOC: US 13:45
DX: E05.00 Thyrotoxicosis with diffuse goiter without thyrotoxic crisis or storm (principal)

== ENCOUNTER → 2017-04-27 | Outpatient (CLI) | payer OTHER | END | disposition home or self-care (01) | LOC: RAD 16:55 | DX: M79.671 Pain in right foot (principal) ==

== ENCOUNTER 2017-10-07 09:41 | Inpatient (IN) | payer OTHER ==
[~2017-10-07] VITALS: Ht 170.1 cm; Wt 106.7 kg
[2017-10-07 09:48] VITALS: BP 116/64
[2017-10-07] MEDS ORDERED: METHIMAZOLE5 M1 PO (09:59)
[2017-10-07 10:05] LABS: BASO # 0.1 10*3/uL (0.0-0.1); BASO % 0.9 % (0.0-1.0); EOS # 0.2 10*3/uL (0.0-0.4); EOS % 1.7 % (1.0-4.0); HEMATOCRIT 44.2 % (37.0-47.0); LYMPH # 4.3 10*3/uL (1.3-4.4); LYMPH % 34.4 % (27.0-41.0); MEAN CELL VOLUME 90.2 fl (81.0-99.0); MEAN CORPUSCULAR HGB 30.6 pg (27.0-31.0); MEAN CORPUSCULAR HGB CONC 33.9 g/dl (33.0-37.0); MEAN PLATELET VOLUME 9.6 fl (9.6-12.3); MONO # 0.7 10*3/uL (0.1-1.0); MONO % 5.6 % (3.0-9.0); NEUT # 7.2 10*3/uL (2.3-7.9); PLATELET COUNT AUTOMATED 245 10*3/uL (130-400); RED CELL DISTRI WIDTH 15.8 % (0-14.5); WHITE BLOOD COUNT 12.6 10*3/uL (4.8-10.8)
[2017-10-07 10:13] LABS: ACT PARTIAL THROMBO TIME 27.7 SECONDS (20.8-31.5)
[2017-10-07 10:21] LABS: ALKALINE PHOSPHATASE 236 U/L (45-117); BUN 17 mg/dl (7-24); CHLORIDE 98 mmol/L (98-107); CREATININE 1.27 mg/dL (0.55-1.02); LIPASE 75 U/L (73-393); SGOT/AST 20 IU/L (3-35); SGPT/ALT 18 U/L (12-78); SODIUM 138 mmol/L (136-145); TOTAL PROTEIN 8.2 gm/dL (6.4-8.2)
[2017-10-07 10:23] LABS: TROPONIN I < 0.015 ng/ml (<0.045)
[2017-10-07 10:24] LABS: POTASSIUM 3.8 mmol/L (3.5-5.1)
[2017-10-07 11:03] LABS: BILIRUBIN NEGATIVE (NEGATIVE); BLOOD NEGATIVE (NEGATIVE); CLARITY CLEAR (CLEAR); COLOR YELLOW (YELLOW); GLUCOSE NEGATIVE (NEGATIVE); KETONE NEGATIVE (NEGATIVE); LEUKO ESTERASE NEGATIVE (NEGATIVE); NITRITE NEGATIVE (NEGATIVE); PH 6.5 (5.0-9.0); UROBILINOGEN 0.2 E.U./dl (0.2-1.0)
[2017-10-07 11:04] VITALS: BP 114/62
[2017-10-07 11:13] LABS: BACTERIA TRACE; RBC 0-2 rbc/hpf (0-2)
[2017-10-07 12:04] VITALS: BP 116/62
[2017-10-07 12:20] VITALS: BP 158/84
[2017-10-07] MEDS ORDERED: OMEPRAZOLE D/R20 MG PO (13:33)
[2017-10-07 16:00] VITALS: BP 125/82
[2017-10-07 16:54] LABS: FREE T4 0.11 ng/dl (0.76-1.46)
[2017-10-07 16:58] LABS: TROPONIN I < 0.015 ng/ml (<0.045)
[2017-10-07 20:00] VITALS: BP 107/71
[2017-10-08] VITALS: BP 92/56
[2017-10-08 06:22] LABS: HEMATOCRIT 40.6 % (37.0-47.0); HEMOGLOBIN 13.3 g/dl (12.0-16.0); MEAN CELL VOLUME 93.1 fl (81.0-99.0); MEAN CORPUSCULAR HGB 30.5 pg (27.0-31.0); MEAN CORPUSCULAR HGB CONC 32.8 g/dl (33.0-37.0); MEAN PLATELET VOLUME 9.9 fl (9.6-12.3); PLATELET COUNT AUTOMATED 212 10*3/uL (130-400); RED BLOOD COUNT 4.36 10*6/uL (4.10-5.10); RED CELL DISTRI WIDTH 15.9 % (0-14.5); WHITE BLOOD COUNT 13.2 10*3/uL (4.8-10.8)
[2017-10-08 06:42] LABS: ALBUMIN 3.5 gm/dl (3.1-4.5); CREATININE 1.2 mg/dL (0.55-1.02); PHOSPHOROUS 3.8 mg/dL (2.5-4.9); POTASSIUM 4.3 mmol/L (3.5-5.1); TOTAL PROTEIN 7.3 gm/dL (6.4-8.2)
[2017-10-08 06:56] LABS: PLATELET SUFFICIENCY NORMAL (NORMAL); TOTAL CELLS COUNTED 100 #CELLS
[2017-10-08 07:08] LABS: VITAMIN D, 25-HYDROXY 9.2 ng/mL (30-100)
[2017-10-08 08:00] VITALS: BP 120/76
[2017-10-08 12:00] VITALS: BP 147/90
[2017-10-08] MEDS ORDERED: METHIMAZOLE5 M1 PO (15:08)
== END 2017-10-08 15:58 | disposition home or self-care (01) | DRG 682 ==
LOC: ED 09:41 → 5E 11:26 → EDHOLD 11:26 → 5E 11:56
PROVIDERS: Emergency Medicine; Internal Medicine Hospice and Palliative Medicine
PROC: 4A02XM4 Measurement of Cardiac Total Activity, External Approach (ICD-10-PCS; principal; 2017-10-08)
PROC: 3E073KZ Introduction of Other Diagnostic Substance into Coronary Artery, Percutaneous Approach (ICD-10-PCS; 2017-10-08)
DX: N17.0 Acute kidney failure with tubular necrosis (principal); R65.11 Systemic inflammatory response syndrome (SIRS) of non-infectious origin with acute organ dysfunction; I42.9 Cardiomyopathy, unspecified; E83.41 Hypermagnesemia; E83.51 Hypocalcemia; E66.01 Morbid (severe) obesity due to excess calories; I50.9 Heart failure, unspecified; E04.9 Nontoxic goiter, unspecified; R79.82 Elevated C-reactive protein (CRP); R74.8 Abnormal levels of other serum enzymes; E05.00 Thyrotoxicosis with diffuse goiter without thyrotoxic crisis or storm; G43.909 Migraine, unspecified, not intractable, without status migrainosus; G89.29 Other chronic pain; Z72.0 Tobacco use; I11.0 Hypertensive heart disease with heart failure; R10.9 Unspecified abdominal pain; F41.0 Panic disorder [episodic paroxysmal anxiety]; F43.10 Post-traumatic stress disorder, unspecified; R60.9 Edema, unspecified; F41.1 Generalized anxiety disorder; F25.9 Schizoaffective disorder, unspecified; F31.9 Bipolar disorder, unspecified; K21.9 Gastro-esophageal reflux disease without esophagitis; D72.829 Elevated white blood cell count, unspecified; R73.9 Hyperglycemia, unspecified; M54.5 Low back pain; Z88.8 Allergy status to other drugs, medicaments and biological substances; Z88.2 Allergy status to sulfonamides; Z79.899 Other long term (current) drug therapy; Z71.6 Tobacco abuse counseling; Z87.01 Personal history of pneumonia (recurrent); Z90.710 Acquired absence of both cervix and uterus; Z82.49 Family history of ischemic heart disease and other diseases of the circulatory system; Z83.6 Family history of other diseases of the respiratory system; Z80.8 Family history of malignant neoplasm of other organs or systems; Z68.36 Body mass index [BMI] 36.0-36.9, adult

== ENCOUNTER → 2017-12-23 | Outpatient (CLI) | payer OTHER ==
[~2017-12-23] MED LIST changes: +METHIMAZOLE5 M1 PO; +OMEPRAZOLE D/R20 MG PO
== END | disposition home or self-care (01) ==
LOC: RAD 12-22 08:28
DX: M47.896 Other spondylosis, lumbar region (principal); Z98.890 Other specified postprocedural states

== ENCOUNTER → 2018-01-19 | Outpatient (CLI) | payer OTHER ==
[2018-01-19 10:00] LABS: ALBUMIN 3.6 gm/dl (3.1-4.5); ALKALINE PHOSPHATASE 166 U/L (45-117); BUN 10 mg/dl (7-24); CHLORIDE 104 mmol/L (98-107); CHOLESTEROL 169 mg/dL (<200); FREE T4 1.02 ng/dl (0.76-1.46); HDL CHOLESTEROL 42 mg/dl (40-60); LDL CHOLESTEROL 99 mg/dL (9-159); POTASSIUM 3.7 mmol/L (3.5-5.1); SGOT/AST 19 IU/L (3-35); SGPT/ALT 18 U/L (12-78); SODIUM 141 mmol/L (136-145); T3 UPTAKE 35 % (31-39); THYROXINE (T4) TOTAL 10.4 ug/dl (4.8-13.9); TRIGLYCERIDES 142 mg/dl (<150); VLDL CHOLESTEROL 28 mg/dL (6-40)
[2018-01-19 10:16] LABS: THYROID STIM HORMONE (HS) < 0.005 uIU/ml (0.358-4.75)
[2018-01-19 10:34] LABS: HEMATOCRIT 45.1 % (37.0-47.0); HEMOGLOBIN 14.6 g/dl (12.0-16.0); MEAN CELL VOLUME 89.1 fl (81.0-99.0); MEAN CORPUSCULAR HGB 28.9 pg (27.0-31.0); MEAN CORPUSCULAR HGB CONC 32.4 g/dl (33.0-37.0); MEAN PLATELET VOLUME 10.5 fl (9.6-12.3); RED BLOOD COUNT 5.06 10*6/uL (4.10-5.10); RED CELL DISTRI WIDTH 13.7 % (0-14.5); WHITE BLOOD COUNT 9.9 10*3/uL (4.8-10.8)
== END | disposition home or self-care (01) ==
LOC: LAB 08:34
PROVIDERS: Registered Nurse Flight
DX: I10 Essential (primary) hypertension (principal); E05.00 Thyrotoxicosis with diffuse goiter without thyrotoxic crisis or storm

== ENCOUNTER → 2018-04-04 | Outpatient (CLI) | payer OTHER | END | disposition home or self-care (01) | LOC: US 09:01 | DX: R94.5 Abnormal results of liver function studies (principal) ==

== ENCOUNTER 2019-01-21 21:17 | Emergency (ER) | payer OTHER ==
[~2019-01-21] VITALS: Ht 167.6 cm; Wt 97.1 kg
[2019-01-21 21:18] VITALS: BP 124/81
[2019-01-21 22:03] LABS: BASO # 0.1 10*3/uL (0.0-0.1); BASO % 0.8 % (0.0-1.0); EOS # 0.3 10*3/uL (0.0-0.4); EOS % 2.2 % (1.0-4.0); HEMOGLOBIN 14.5 g/dl (12.0-16.0); LYMPH # 4.3 10*3/uL (1.3-4.4); LYMPH % 36.6 % (27.0-41.0); MEAN CELL VOLUME 89.1 fl (81.0-99.0); MEAN CORPUSCULAR HGB 29.4 pg (27.0-31.0); MONO # 0.9 10*3/uL (0.1-1.0); MONO % 7.9 % (3.0-9.0); NEUT # 6.2 10*3/uL (2.3-7.9); NEUT % 52.2 % (47.0-73.0); PLATELET COUNT AUTOMATED 288 10*3/uL (130-400); RED BLOOD COUNT 4.94 10*6/uL (4.10-5.10); RED CELL DISTRI WIDTH 13.9 % (0-14.5); WHITE BLOOD COUNT 11.9 10*3/uL (4.8-10.8)
[2019-01-21 22:12] LABS: INTERNATIONAL NORM RATIO 0.9 (2.0-3.5)
[2019-01-21 22:19] LABS: ALBUMIN 3.7 gm/dl (3.1-4.5); ALKALINE PHOSPHATASE 142 U/L (45-117); BUN 19 mg/dl (7-24); CHLORIDE 101 mmol/L (98-107); POTASSIUM 3.9 mmol/L (3.5-5.1); SGOT/AST 12 IU/L (3-35); SGPT/ALT 17 U/L (12-78); SODIUM 135 mmol/L (136-145); TOTAL PROTEIN 7.6 gm/dL (6.4-8.2)
[2019-01-21] MEDS ORDERED: CEPHALEXIN500 M1 PO (22:55)
== END 2019-01-21 23:35 | disposition home or self-care (01) ==
LOC: ED 21:17
PROVIDERS: Nurse Practitioner Family
DX: S40.022A Contusion of left upper arm, initial encounter (principal); I50.9 Heart failure, unspecified; I11.0 Hypertensive heart disease with heart failure; F17.200 Nicotine dependence, unspecified, uncomplicated; Z88.6 Allergy status to analgesic agent; Z88.1 Allergy status to other antibiotic agents; Z88.8 Allergy status to other drugs, medicaments and biological substances; Z88.2 Allergy status to sulfonamides; Z88.7 Allergy status to serum and vaccine; Z91.040 Latex allergy status; X58.XXXA Exposure to other specified factors, initial encounter; Y93.89 Activity, other specified; Y92.89 Other specified places as the place of occurrence of the external cause; Y99.8 Other external cause status

== ENCOUNTER → 2019-05-01 | Outpatient (CLI) | payer OTHER ==
[~2019-05-01] MED LIST changes: +CEPHALEXIN500 M1 PO
== END | disposition home or self-care (01) ==
LOC: CT 08:19
DX: G43.519 Persistent migraine aura without cerebral infarction, intractable, without status migrainosus (principal); S16.1XXA Strain of muscle, fascia and tendon at neck level, initial encounter; X58.XXXA Exposure to other specified factors, initial encounter; Y93.89 Activity, other specified; Y92.89 Other specified places as the place of occurrence of the external cause; Y99.8 Other external cause status

== ENCOUNTER → 2021-06-28 | Outpatient (CLI) | payer OTHER ==
[2021-06-28 11:21] LABS: BASO # 0.1 10*3/uL (0.0-0.1); BASO % 0.6 % (0.0-1.0); EOS # 0.1 10*3/uL (0.0-0.4); EOS % 1.4 % (1.0-4.0); HEMATOCRIT 45.8 % (37.0-47.0); LYMPH # 2.7 10*3/uL (1.3-4.4); LYMPH % 28.6 % (27.0-41.0); MEAN CORPUSCULAR HGB 30.1 pg (27.0-31.0); MEAN CORPUSCULAR HGB CONC 33.4 g/dl (33.0-37.0); MEAN PLATELET VOLUME 10.4 fl (9.6-12.3); MONO # 0.6 10*3/uL (0.1-1.0); MONO % 6.5 % (3.0-9.0); NEUT # 5.9 10*3/uL (2.3-7.9); NEUT % 62.6 % (47.0-73.0); PLATELET COUNT AUTOMATED 259 10*3/uL (130-400); RED BLOOD COUNT 5.09 10*6/uL (4.10-5.10); RED CELL DISTRI WIDTH 13.2 % (0-14.5); WHITE BLOOD COUNT 9.5 10*3/uL (4.8-10.8)
[2021-06-28 11:39] LABS: ALKALINE PHOSPHATASE 196 U/L (45-117); BUN 7 mg/dl (7-24); CHLORIDE 95 mmol/L (98-107); CHOLESTEROL 211 mg/dL (<200); CREATININE 0.91 mg/dL (0.55-1.02); LDL CHOLESTEROL 105 mg/dL (9-159); POTASSIUM 3.9 mmol/L (3.5-5.1); SGOT/AST 13 IU/L (3-35); SGPT/ALT 17 U/L (12-78); SODIUM 133 mmol/L (136-145); TOTAL PROTEIN 7.4 gm/dL (6.4-8.2); TRIGLYCERIDES 330 mg/dl (<150)
[2021-06-28 11:48] LABS: THYROXINE (T4) TOTAL 6.8 ug/dl (4.8-13.9)
== END | disposition home or self-care (01) ==
LOC: LAB 11:00
PROVIDERS: ATTEND Internal Medicine
DX: E11.9 Type 2 diabetes mellitus without complications (principal); E05.90 Thyrotoxicosis, unspecified without thyrotoxic crisis or storm; E03.9 Hypothyroidism, unspecified

== ENCOUNTER → 2023-03-11 | Outpatient (CLI) | payer OTHER | END | disposition home or self-care (01) | LOC: RAD 12:29 | PROVIDERS: ATTEND Internal Medicine | DX: M47.812 Spondylosis without myelopathy or radiculopathy, cervical region (principal); M43.22 Fusion of spine, cervical region ==

== ENCOUNTER 2023-12-26 14:57 | Emergency (ER) | payer OTHER ==
[~2023-12-26] VITALS: Ht 170.2 cm; Wt 81.6 kg
[2023-12-26 15:12] VITALS: BP 159/99
== END 2023-12-26 16:02 | disposition home or self-care (01) ==
LOC: ED 14:57
DX: S92.425A Nondisplaced fracture of distal phalanx of left great toe, initial encounter for closed fracture (principal); S80.212A Abrasion, left knee, initial encounter; F32.A Depression, unspecified; G43.909 Migraine, unspecified, not intractable, without status migrainosus; I11.0 Hypertensive heart disease with heart failure; I50.9 Heart failure, unspecified; F17.200 Nicotine dependence, unspecified, uncomplicated; Z88.5 Allergy status to narcotic agent; Z88.2 Allergy status to sulfonamides; Z91.040 Latex allergy status; Z88.8 Allergy status to other drugs, medicaments and biological substances; Z90.710 Acquired absence of both cervix and uterus; Z98.890 Other specified postprocedural states; W17.89XA Other fall from one level to another, initial encounter; Y93.89 Activity, other specified; Y92.89 Other specified places as the place of occurrence of the external cause; Y99.8 Other external cause status

== ENCOUNTER 2024-09-13 09:04 | Emergency (ER) | payer OTHER ==
[~2024-09-13] VITALS: Ht 167.6 cm; Wt 68.0 kg
[2024-09-13 09:11] VITALS: BP 146/90
[2024-09-13 09:36] LABS: BILIRUBIN 2+ (Negative); BLOOD Negative (Negative); CLARITY Cloudy (Clear); GLUCOSE Negative (Negative); KETONE Negative (Negative); LEUKO ESTERASE 2+ (Negative); NITRITE Positive (Negative); SPECIFIC GRAVITY >= 1.030 (1.001-1.030)
[2024-09-13 09:49] LABS: BACTERIA 2+; CALCIUM OXALATE CRYSTALS 16-20; COLOR Red (Yellow); RBC 0-2 rbc/hpf (0-2)
[2024-09-13] MEDS ORDERED: CEFPODOXIME PR100 M1 PO (10:03)
== END 2024-09-13 10:13 | disposition home or self-care (01) ==
LOC: ED 09:04
PROVIDERS: Internal Medicine
DX: N39.0 Urinary tract infection, site not specified (principal); Z79.899 Other long term (current) drug therapy; Z88.1 Allergy status to other antibiotic agents; Z88.5 Allergy status to narcotic agent; Z88.8 Allergy status to other drugs, medicaments and biological substances; Z91.040 Latex allergy status; F17.200 Nicotine dependence, unspecified, uncomplicated; Z90.710 Acquired absence of both cervix and uterus; Z98.890 Other specified postprocedural states

== ENCOUNTER → 2025-04-06 | Outpatient (CLI) | payer OTHER ==
[~2025-04-06] MED LIST changes: +CEFPODOXIME PR100 M1 PO
[2025-04-06 10:19] LABS: BASO # 0.1 10*3/uL (0.0-0.1); BASO % 0.8 % (0.0-1.0); EOS # 0.2 10*3/uL (0.0-0.4); EOS % 2.0 % (1.0-4.0); MEAN CELL VOLUME 92.5 fl (81.0-99.0); MEAN CORPUSCULAR HGB 31.0 pg (27.0-31.0); MEAN PLATELET VOLUME 10.0 fl (9.6-12.3); MONO # 0.6 10*3/uL (0.1-1.0); MONO % 7.4 % (3.0-9.0); NEUT # 5.0 10*3/uL (2.3-7.9); NEUT % 59.2 % (47.0-73.0); NUCLEATED RED BLOOD CELL 0.0 % (0.0-0.0); NUCLEATED RED BLOOD CELL 0.0 10*3/uL (0.0-0.0); PLATELET COUNT AUTOMATED 230 10*3/uL (130-400); RED CELL DISTRI WIDTH 13.9 % (0-14.5)
[2025-04-06 10:43] LABS: BUN 13 mg/dl (9-23); LDL CHOLESTEROL 104 mg/dL (9-159); SGPT/ALT 12 U/L (5-49); THYROXINE (T4) TOTAL 7.8 ug/dl (4.5-10.9)
== END | disposition home or self-care (01) ==
LOC: LAB 09:32
PROVIDERS: ATTEND Internal Medicine
DX: E11.9 Type 2 diabetes mellitus without complications (principal)